=== PATIENT | female | born 1930 | race Caucasian/White ===

== ENCOUNTER 2017-08-04 15:10 | Inpatient (IN) | payer MEDICARE, OTHER ==
[~2017-08-04] VITALS: Ht 160 cm; Wt 86.6 kg
[~2017-08-04 15:10] MED LIST: ACIPHEX20 MG ORAL; DIOVAN HCT 1601 EACH ORAL; KLONOPIN0.5 MG ORAL; LASIX20 M1 ORAL; LOPRESSOR25 M1 ORAL; PACERONE200 MG ORAL; SERTRALINE HCL50 MG ORAL; SPIRONOLACTONE25 MG ORAL; SYNTHROID50 MCG ORAL; XARELTO10 MG ORAL
[2017-08-04] MEDS ORDERED: DIGOXIN0.125 MG/2 ORAL (15:13)
[2017-08-04] MEDS ORDERED: AMIODARONE HCL400 M1 ORAL (15:13)
--- NOTE | 2017-08-04 15:16 | Emergency Room Report ---
History of Present Illness General Chief Complaint: Chest Pain Source: Patient, EMS Present Illness HPI This is an 79-year-old female presented after increased chest pain. Patient reported having acute onset of symptoms. Patient was noted to have increased shortness of breath. Patient was given nitroglycerin x2 by EMS with improvement in her chest pain. Allergies: Coded Allergies: No Known Allergies (Unverified , 01/13/15) Patient History Past Medical History: see triage record Reviewed Nursing Documentation: PMH: Agreed, PSxH: Agreed Nursing Documentation-PMH Past Medical History: No History, Except For Hx Cardiac Problems: Yes Hx Hypertension: Yes Hx Cancer: Yes Hx Gastrointestinal Problems: No Hx Neurological Problems: No Review of Systems All Other Systems: negative except mentioned in HPI Physical Exam Vital Signs Date Time Temp Pulse Resp B/P (MAP) Pulse Ox O2 Delivery O2 Flow Rate FiO2 08/04/17 15:06 77 20 162/84 97 Nasal Cannula 4.0 Sp02 EP Interpretation: reviewed, normal General Appearance: normal inspection, well appearing, no apparent distress, alert, GCS 15, non-toxic Head: atraumatic ENT: normal ENT inspection, hearing grossly normal, normal voice Neck: normal inspection, full range of motion, supple, no bony tend Respiratory: normal inspection, lungs clear, normal breath sounds, no respiratory distress, no retraction, no wheezing Cardiovascular #1: regular rate, rhythm, no edema Gastrointestinal: normal inspection, normal bowel sounds, non tender, soft, no guarding, no hernia Genitourinary: no CVA tenderness Musculoskeletal: normal inspection, back normal, normal range of motion Neurologic: normal inspection, alert, responsive, speech normal Psychiatric: normal inspection, judgement/insight normal, mood/affect normal Skin: normal inspection, normal color, no rash Medical Decision Making Diagnostic Impression: Primary Impression: CAD (coronary artery disease) Additional Impression: Atrial flutter by electrocardiogram ER Course Patient presented for chest pain. Differential diagnosis included but was not limited to acute coronary syndrome, pulmonary embolism, pneumonia, aortic dissection, shingles, pneumothorax, aortic dissection, esophageal rupture, pericarditis. Because of complexity of patient's case laboratory testing and imaging studies were ordered. The patient was noted to have EKG with atrial flutter with variable block. atient was Khurram Mistry. Patient wasDiscussed with Dr. Reuben LandaverdeFor inpatient management due to covering physician. Labs Test 08/04/17 15:28 08/04/17 20:45 White Blood Count 7.1 K/UL (4.8-10.8) Red Blood Count 3.81 M/UL (4.20-5.40) Hemoglobin 11.4 G/DL (12.0-16.0) Hematocrit 36.5 % (37.0-47.0) Mean Corpuscular Volume 96 FL (80-99) Mean Corpuscular Hemoglobin 30.0 PG (27.0-31.0) Mean Corpuscular Hemoglobin Concent 31.3 G/DL (32.0-36.0) Red Cell Distribution Width 13.3 % (11.6-14.8) Platelet Count 191 K/UL (150-450) Mean Platelet Volume 6.3 FL (6.5-10.1) Neutrophils (%) (Auto) 67.8 % (45.0-75.0) Lymphocytes (%) (Auto) 24.2 % (20.0-45.0) Monocytes (%) (Auto) 6.7 % (1.0-10.0) Eosinophils (%) (Auto) 0.6 % (0.0-3.0) Basophils (%) (Auto) 0.7 % (0.0-2.0) D-Dimer 261 ng/mL (<500) Troponin I < 0.30 ng/mL (<=0.30) Pro-B-Type Natriuretic Peptide 2254 pg/mL (0-450) Digoxin Level < 0.3 ng/mL (0.5-2.0) Sodium Level 141 mEQ/L (135-145) Potassium Level 3.7 mEQ/L (3.4-4.9) Chloride Level 101 mEQ/L (98-107) Carbon Dioxide Level 26 mEQ/L (20-30) Anion Gap 14 (5-15) Blood Urea Nitrogen 22 mg/dL (7-23) Creatinine 1.2 mg/dL (0.5-0.9) Estimat Glomerular Filtration Rate mL/min (>60) Glucose Level 97 mg/dL (74-106) Calcium Level 8.9 mg/dL (8.6-10.2) Total Bilirubin 0.8 mg/dL (0.0-1.2) Aspartate Amino Transf (AST/SGOT) 34 U/L (5-40) Alanine Aminotransferase (ALT/SGPT) 25 U/L (3-33) Alkaline Phosphatase 91 U/L (35-104) Total Protein 6.6 g/dL (6.6-8.7) Albumin 3.9 g/dL (3.5-5.2) Globulin 2.7 g/dL Albumin/Globulin Ratio 1.4 (1.0-2.7) Last Vital Signs Date Time Temp Pulse Resp B/P (MAP) Pulse Ox O2 Delivery O2 Flow Rate FiO2 08/04/17 15:06 77 20 162/84 97 Nasal Cannula 4.0 Status: improved Disposition: ADMITTED INPATIENT Condition: Stable Steven Gilman Aug 04, 2017 15:15
[2017-08-04 15:48] LABS: BASOPHILS % (AUTO) 0.7 % (0.0-2.0); EOSINOPHILS % (AUTO) 0.6 % (0.0-3.0); LYMPHOCYTES % (AUTO) 24.2 % (20.0-45.0); MEAN CORPUSCULAR HGB CONC 31.3 G/DL (32.0-36.0); MEAN CORPUSCULAR VOLUME 96 FL (80-99); MEAN PLATELET VOLUME 6.3 FL (6.5-10.1); MONOCYTES % (AUTO) 6.7 % (1.0-10.0); NEUTROPHILS % (AUTO) 67.8 % (45.0-75.0); PLATELET COUNT 191 K/UL (150-450); RED BLOOD COUNT 3.81 M/UL (4.20-5.40); RED CELL DISTRIBUTION WIDTH 13.3 % (11.6-14.8); WHITE BLOOD COUNT 7.1 K/UL (4.8-10.8)
[2017-08-04 16:04] LABS: ALANINE AMINOTRANSFERASE 27 U/L (3-33); ALBUMIN/GLOBULIN RATIO 1.5 (1.0-2.7); ANION GAP 12 (5-15); ASPARTATE AMINO TRANSFERASE 36 U/L (5-40); CALCIUM 8.9 mg/dL (8.6-10.2); CARBON DIOXIDE 27 mEQ/L (20-30); CHLORIDE 100 mEQ/L (98-107); CREATININE 1.3 mg/dL (0.5-0.9); HEMOLYSIS 3; POTASSIUM 3.5 mEQ/L (3.4-4.9); SODIUM 139 mEQ/L (135-145); TOTAL PROTEIN 6.6 g/dL (6.6-8.7)
[2017-08-04 16:06] LABS: TROPONIN I < 0.30 ng/mL (<=0.30)
[2017-08-04 16:54] VITALS: BP 158/87
[2017-08-04 19:35] VITALS: BP 160/96
[2017-08-04 20:00] VITALS: BP 158/94
[2017-08-04 21:38] LABS: ALANINE AMINOTRANSFERASE 25 U/L (3-33); ALBUMIN/GLOBULIN RATIO 1.4 (1.0-2.7); ANION GAP 14 (5-15); ASPARTATE AMINO TRANSFERASE 34 U/L (5-40); CALCIUM 8.9 mg/dL (8.6-10.2); CARBON DIOXIDE 26 mEQ/L (20-30); CHLORIDE 101 mEQ/L (98-107); CREATININE 1.2 mg/dL (0.5-0.9); HEMOLYSIS 9; POTASSIUM 3.7 mEQ/L (3.4-4.9); SODIUM 141 mEQ/L (135-145); TOTAL PROTEIN 6.6 g/dL (6.6-8.7)
[2017-08-04 21:41] LABS: DIGOXIN < 0.3 ng/mL (0.5-2.0)
[2017-08-04] MEDS: Amiodarone 200mg tab ORAL SCH (21:47)
[2017-08-04 21:53] VITALS: BP 158/79
[2017-08-04] MEDS: clonazePAM 0.5mg tab ORAL SCH (23:30)
[2017-08-05] VITALS (7 sets, daily range): BP systolic 146–168; BP diastolic 66–103
[2017-08-05] MEDS: clonazePAM 0.5mg tab ORAL SCH ×4 (04:53→23:33)
[2017-08-05 07:59] LABS: TROPONIN I < 0.30 ng/mL (<=0.30)
[2017-08-05] MEDS ORDERED: Losartan 25mg tab ORAL SCH (09:00)
[2017-08-05] MEDS: Sertraline 50mg tab ORAL SCH (10:15)
[2017-08-05] MEDS: Digoxin Elixir 0.125mg ORAL SCH (10:15)
[2017-08-05] MEDS: Spironolactone 25mg tab ORAL SCH (10:15)
[2017-08-05] MEDS: Amiodarone 200mg tab ORAL SCH ×2 (10:15→20:55)
--- NOTE | 2017-08-05 12:15 | Diagnostic Imaging Report ---
Indication: Shortness of breath Comparison: 12/25/2015 Findings: Single view of the chest shows cardiomegaly unchanged. Pulmonary vasculature is normal. Lungs are clear. Bones are unremarkable. Impression: No acute chest disease. Cardiomegaly unchanged. There is no acute pneumonitis or failure. Aortic calcifications, unchanged.
[2017-08-05] MEDS: Xarelto 10mg tab ORAL SCH (16:57)
--- NOTE | 2017-08-05 20:26 | Pulmonology Progress Note ---
Assessment/Plan Assessment/Plan respiratory insufficiency CHF possible fluid overload advanced age possible hypoventilation hypoxemia PLAN care noted IV lasix respiratory care supportive care obtain venous US DVT prophylaxis oxygen therapy prognosis guarded Subjective Allergies: Coded Allergies: No Known Allergies (Unverified , 01/13/15) Subjective full note to followup asked to followup for dyspnea Objective Last 24 Hour Vital Signs Date Time Temp Pulse Resp B/P (MAP) Pulse Ox O2 Delivery O2 Flow Rate FiO2 08/05/17 20:00 98.0 75 18 146/103 95 Room Air 2.0 28 08/05/17 16:00 70 08/05/17 16:00 98.0 71 20 151/72 96 Room Air 08/05/17 14:30 151/72 08/05/17 12:52 98.7 76 20 168/66 97 Nasal Cannula 2.0 08/05/17 12:00 68 08/05/17 10:15 166/76 08/05/17 10:15 70 166/76 08/05/17 10:15 70 08/05/17 08:10 Nasal Cannula 2.0 28 08/05/17 08:10 95 Nasal Cannula 2.0 28 08/05/17 08:00 75 08/05/17 08:00 97.7 70 20 166/76 94 Nasal Cannula 2.0 08/05/17 04:39 97.9 71 22 147/75 98 Nasal Cannula 2.0 08/05/17 04:00 63 08/05/17 01:10 97.9 72 21 152/96 100 Nasal Cannula 2.0 08/05/17 00:00 71 08/04/17 21:53 96.3 72 20 158/79 95 Nasal Cannula 2.0 08/04/17 21:48 69 158/79 Intake and Output 08/05/17 08/06/17 19:00 07:00 Intake Total 630 ml Output Total 1500 ml Balance -870 ml Intake Oral 630 ml Output Urine Total 1500 ml Objective WDWN NAD reduced breath sounds bilaterally without rhonchi or wheeze [id number] without MRG NABS nontender no HSM no CC some edema nonfocal Laboratory Tests 08/04/17 20:45: Sodium Level 141, Potassium Level 3.7, Chloride Level 101, Carbon Dioxide Level 26, Anion Gap 14, Blood Urea Nitrogen 22, Creatinine 1.2H, Estimat Glomerular Filtration Rate , Glucose Level 97, Calcium Level 8.9, Total Bilirubin 0.8, Aspartate Amino Transf (AST/SGOT) 34, Alanine Aminotransferase (ALT/SGPT) 25, Alkaline Phosphatase 91, Total Protein 6.6, Albumin 3.9, Globulin 2.7, Albumin/ Globulin Ratio 1.4 08/05/17 05:50: Troponin I < 0.30 Current Medications Medications (Trade) Dose Ordered Sig/Tamia Route PRN Reason Start Time Stop Time Status Last Admin Dose Admin Acetaminophen (Tylenol) 650 mg Q4H PRN ORAL Mild Pain/Temp > 100.5 08/05/17 16:00 09/04/17 15:59 08/05/17 16:57 Amiodarone HCl (Cordarone) 200 mg EVERY 12 HOURS ORAL 08/04/17 21:00 09/03/17 20:59 08/05/17 10:15 Clonazepam (KlonoPIN) 0.5 mg Q6HR ORAL 08/05/17 00:00 08/12/17 00:00 08/05/17 17:01 Digoxin (Lanoxin) 0.125 mg DAILY ORAL 08/05/17 09:00 09/04/17 08:59 08/05/17 10:15 Furosemide (Lasix) 40 mg DAILY IV 08/05/17 09:00 09/04/17 08:59 08/05/17 10:15 Levothyroxine Sodium (Synthroid) 50 mcg ACBREAKFAST ORAL 08/05/17 06:30 09/04/17 06:29 08/05/17 04:53 Losartan Potassium (Cozaar) 25 mg DAILY ORAL 08/05/17 09:00 09/04/17 08:59 08/05/17 10:15 Metoprolol Tartrate (Lopressor) 100 mg EVERY 12 HOURS ORAL 08/04/17 21:00 09/03/17 20:59 08/05/17 10:15 Pantoprazole (Protonix) 40 mg ACBREAKFAST ORAL 08/05/17 06:30 09/04/17 06:29 08/05/17 04:54 Rivaroxaban (Xarelto) 15 mg QPM ORAL 08/05/17 16:30 09/04/17 16:29 08/05/17 16:57 Sennosides (Senokot) 17.2 mg DAILYPRN PRN ORAL Constipation 08/05/17 17:00 09/04/17 16:59 Sertraline HCl (Zoloft) 50 mg DAILY ORAL 08/05/17 09:00 09/04/17 08:59 08/05/17 10:15 Spironolactone (Aldactone) 25 mg DAILY ORAL 08/05/17 09:00 09/04/17 08:59 08/05/17 10:15 KARINE MARKS Aug 05, 2017 20:26
[2017-08-06] VITALS: BP 149/89
[2017-08-06 04:00] VITALS: BP 155/91
[2017-08-06] MEDS: clonazePAM 0.5mg tab ORAL SCH ×3 (05:05→18:15)
[2017-08-06] MEDS ORDERED: Nitroglycerin 2% oint pkt TOPIC SCH (06:00)
--- NOTE | 2017-08-06 08:05 | General Progress Note ---
Assessment/Plan Problem List: (1) Bronchitis ICD Codes: J40 - Bronchitis, not specified as acute or chronic SNOMED: 20578520 (2) CAD (coronary artery disease) ICD Codes: I25.10 - CAD (coronary artery disease) SNOMED: 18295653 (3) Atrial flutter by electrocardiogram ICD Codes: I48.92 - Unspecified atrial flutter SNOMED: 801304329 (4) Chest pain ICD Codes: R07.9 - Chest pain, unspecified SNOMED: 36458662 Status: stable Assessment/Plan po abx for bronchitis d/c nitro paste- probably causing ALDRICH cardiac rx adjusted o2 diuresis Subjective ROS Limited/Unobtainable: No Constitutional: Reports: malaise, weakness HEENT: Reports: no symptoms Cardiovascular: Reports: no symptoms Respiratory: Reports: no symptoms Gastrointestinal/Abdominal: Reports: no symptoms Genitourinary: Reports: no symptoms Neurologic/Psychiatric: Reports: no symptoms Endocrine: Reports: no symptoms Hematologic/Lymphatic: Reports: no symptoms Allergies: Coded Allergies: No Known Allergies (Unverified , 01/13/15) All Systems: reviewed and negative except above Subjective c/o headache. couldnt sleep. still does not feel well. feels congested. no fevers. Objective Last 24 Hour Vital Signs Date Time Temp Pulse Resp B/P (MAP) Pulse Ox O2 Delivery O2 Flow Rate FiO2 08/06/17 06:26 160/91 08/06/17 04:00 98.0 61 19 155/91 96 Room Air 2.0 08/06/17 03:57 69 08/06/17 00:00 97.9 66 19 149/89 97 Room Air 2.0 08/05/17 23:50 60 08/05/17 20:56 75 146/103 08/05/17 20:00 98.0 75 18 146/103 95 Room Air 2.0 28 08/05/17 19:05 84 08/05/17 16:00 70 08/05/17 16:00 98.0 71 20 151/72 96 Room Air 08/05/17 14:30 151/72 08/05/17 12:52 98.7 76 20 168/66 97 Nasal Cannula 2.0 08/05/17 12:00 68 08/05/17 10:15 166/76 08/05/17 10:15 70 166/76 08/05/17 10:15 70 08/05/17 08:10 Nasal Cannula 2.0 28 08/05/17 08:10 95 Nasal Cannula 2.0 28 Laboratory Tests 08/06/17 07:00: White Blood Count [Pending], Red Blood Count [Pending], Hemoglobin [Pending], Hematocrit [Pending], Mean Corpuscular Volume [Pending], Mean Corpuscular Hemoglobin [Pending], Mean Corpuscular Hemoglobin Concent [Pending], Red Cell Distribution Width [Pending], Platelet Count [Pending], Mean Platelet Volume [ Pending], Neutrophils (%) (Auto) [Pending], Lymphocytes (%) (Auto) [Pending], Monocytes (%) (Auto) [Pending], Eosinophils (%) (Auto) [Pending], Basophils (%) (Auto) [Pending], Sodium Level [Pending], Potassium Level [Pending], Chloride Level [Pending], Carbon Dioxide Level [Pending], Blood Urea Nitrogen [Pending], Creatinine [Pending], Estimat Glomerular Filtration Rate [Pending], Glucose Level [Pending], Calcium Level [Pending], Magnesium Level [Pending], Total Bilirubin [Pending], Aspartate Amino Transf (AST/SGOT) [Pending], Alanine Aminotransferase (ALT/SGPT) [Pending], Alkaline Phosphatase [Pending], Pro-B- Type Natriuretic Peptide [Pending], Total Protein [Pending], Albumin [Pending], Globulin [Pending], Triglycerides Level [Pending], Cholesterol Level [Pending], LDL Cholesterol [Pending], HDL Cholesterol [Pending], Cholesterol/HDL Ratio [ Pending], Digoxin Level [Pending] Height (Feet): 5 Height (Inches): 3.00 Weight (Pounds): 185 General Appearance: WD/WN, alert Neck: non-tender, normal alignment, supple, normal inspection Cardiovascular: normal rate, regular rhythm Respiratory/Chest: chest wall non-tender, lungs clear, normal breath sounds, no respiratory distress Abdomen: normal bowel sounds, non tender, soft, no organomegaly Edema: no edema noted Arm (L), no edema noted Arm (R), no edema noted Leg (L), no edema noted Leg (R), no edema noted Pedal (L), no edema noted Pedal (R), no edema noted Generalized RACHEL KITCHEN Aug 06, 2017 08:05
[2017-08-06 08:13] LABS: BASOPHILS % (AUTO) 0.6 % (0.0-2.0); LYMPHOCYTES % (AUTO) 25.7 % (20.0-45.0); MEAN CORPUSCULAR HEMOGLOBIN 29.5 PG (27.0-31.0); MEAN CORPUSCULAR HGB CONC 31.1 G/DL (32.0-36.0); MEAN CORPUSCULAR VOLUME 95 FL (80-99); MEAN PLATELET VOLUME 6.8 FL (6.5-10.1); MONOCYTES % (AUTO) 8.2 % (1.0-10.0); NEUTROPHILS % (AUTO) 64.6 % (45.0-75.0); PLATELET COUNT 212 K/UL (150-450); RED BLOOD COUNT 4.23 M/UL (4.20-5.40); RED CELL DISTRIBUTION WIDTH 13.2 % (11.6-14.8)
[2017-08-06 08:49] LABS: ALANINE AMINOTRANSFERASE 22 U/L (3-33); ALBUMIN/GLOBULIN RATIO 1.3 (1.0-2.7); ANION GAP 10 (5-15); ASPARTATE AMINO TRANSFERASE 27 U/L (5-40); CALCIUM 9.5 mg/dL (8.6-10.2); CARBON DIOXIDE 31 mEQ/L (20-30); CHLORIDE 102 mEQ/L (98-107); CHOLESTEROL 161 mg/dL (< 200); CREATININE 1.3 mg/dL (0.5-0.9); HEMOLYSIS 7; LDL CHOLESTEROL CALC 111 mg/dL (60-99); MAGNESIUM 2.1 mg/dL (1.7-2.5); POTASSIUM 3.9 mEQ/L (3.4-4.9); SODIUM 143 mEQ/L (135-145); TOTAL PROTEIN 6.9 g/dL (6.6-8.7)
[2017-08-06 08:53] VITALS: BP 133/79
[2017-08-06] MEDS: Sertraline 50mg tab ORAL SCH (09:36)
[2017-08-06] MEDS: Spironolactone 25mg tab ORAL SCH (09:36)
[2017-08-06] MEDS: Amiodarone 200mg tab ORAL SCH ×2 (09:38→21:06)
[2017-08-06] MEDS: Digoxin Elixir 0.125mg ORAL SCH (09:38)
[2017-08-06] MEDS: Losartan 50mg tab ORAL SCH (09:39)
[2017-08-06] MEDS ORDERED: Levofloxacin 500mg tab ORAL ONE (10:00)
--- NOTE | 2017-08-06 10:35 | Pulmonology Progress Note ---
Assessment/Plan Assessment/Plan respiratory insufficiency CHF possible fluid overload advanced age possible hypoventilation hypoxemia PLAN care noted therapy without change nitro dcd respiratory care supportive care await venous US stablilize and dc when improved oxygen therapy prognosis guarded impression, plan, and exam edited and reviewed in detail care discussed with RN Subjective Allergies: Coded Allergies: No Known Allergies (Unverified , 01/13/15) Subjective mild congestion headache on oxygen Objective Last 24 Hour Vital Signs Date Time Temp Pulse Resp B/P (MAP) Pulse Ox O2 Delivery O2 Flow Rate FiO2 08/06/17 09:50 67 133/79 08/06/17 09:39 133/79 08/06/17 09:38 67 133/79 08/06/17 09:38 67 08/06/17 08:53 98.2 67 20 133/79 91 Room Air 08/06/17 08:20 74 08/06/17 06:26 160/91 08/06/17 04:00 98.0 61 19 155/91 96 Room Air 2.0 08/06/17 03:57 69 08/06/17 00:00 97.9 66 19 149/89 97 Room Air 2.0 08/05/17 23:50 60 08/05/17 20:56 75 146/103 08/05/17 20:00 98.0 75 18 146/103 95 Room Air 2.0 28 08/05/17 19:05 84 08/05/17 16:00 70 08/05/17 16:00 98.0 71 20 151/72 96 Room Air 08/05/17 14:30 151/72 08/05/17 12:52 98.7 76 20 168/66 97 Nasal Cannula 2.0 08/05/17 12:00 68 Intake and Output 08/06/17 08/07/17 19:00 07:00 Intake Total 240 ml Output Total 900 ml Balance -660 ml Intake Oral 240 ml Output Urine Total 900 ml Objective WDWN NAD reduced breath sounds bilaterally with some rhonchi but no wheeze [id number] without MRG NABS nontender no HSM no CC some edema nonfocal Laboratory Tests 08/06/17 07:00: White Blood Count 6.0, Red Blood Count 4.23, Hemoglobin 12.5, Hematocrit 40.2, Mean Corpuscular Volume 95, Mean Corpuscular Hemoglobin 29.5, Mean Corpuscular Hemoglobin Concent 31.1L, Red Cell Distribution Width 13.2, Platelet Count 212, Mean Platelet Volume 6.8, Neutrophils (%) (Auto) 64.6, Lymphocytes (%) (Auto) 25.7, Monocytes (%) (Auto) 8.2, Eosinophils (%) (Auto) 1.0, Basophils (%) (Auto ) 0.6, Sodium Level 143, Potassium Level 3.9, Chloride Level 102, Carbon Dioxide Level 31H, Anion Gap 10, Blood Urea Nitrogen 24H, Creatinine 1.3H, Estimat Glomerular Filtration Rate , Glucose Level 91, Calcium Level 9.5, Magnesium Level 2.1, Total Bilirubin 1.0, Aspartate Amino Transf (AST/SGOT) 27, Alanine Aminotransferase (ALT/SGPT) 22, Alkaline Phosphatase 89, Pro-B-Type Natriuretic Peptide 1842H, Total Protein 6.9, Albumin 3.9, Globulin 3.0, Albumin /Globulin Ratio 1.3, Triglycerides Level 113, Cholesterol Level 161, LDL Cholesterol 111H, HDL Cholesterol 27, Cholesterol/HDL Ratio 6.0H, Digoxin Level [Pending] Current Medications Medications (Trade) Dose Ordered Sig/Tamia Route PRN Reason Start Time Stop Time Status Last Admin Dose Admin Acetaminophen (Tylenol) 650 mg Q4H PRN ORAL Mild Pain/Temp > 100.5 08/05/17 16:00 09/04/17 15:59 08/06/17 09:37 Amiodarone HCl (Cordarone) 200 mg EVERY 12 HOURS ORAL 08/04/17 21:00 09/03/17 20:59 08/06/17 09:38 Amlodipine Besylate (Norvasc) 5 mg DAILY ORAL 08/06/17 09:00 09/05/17 08:59 08/06/17 09:50 Clonazepam (KlonoPIN) 0.5 mg Q6HR ORAL 08/05/17 00:00 08/12/17 00:00 08/05/17 23:33 Digoxin (Lanoxin) 0.125 mg DAILY ORAL 08/05/17 09:00 09/04/17 08:59 08/06/17 09:38 Furosemide (Lasix) 40 mg DAILY IV 08/05/17 09:00 09/04/17 08:59 08/06/17 09:36 Hydralazine HCl (Apresoline) 10 mg Q4H PRN IV For High Blood Pressure 08/06/17 08:00 09/05/17 07:59 Levofloxacin (Levaquin) 250 mg DAILY ORAL 08/07/17 09:00 08/14/17 08:59 Levothyroxine Sodium (Synthroid) 50 mcg ACBREAKFAST ORAL 08/05/17 06:30 09/04/17 06:29 08/06/17 06:27 Losartan Potassium (Cozaar) 100 mg DAILY ORAL 08/06/17 09:00 09/05/17 08:59 08/06/17 09:39 Metoprolol Tartrate (Lopressor) 100 mg EVERY 12 HOURS ORAL 08/04/17 21:00 09/03/17 20:59 08/06/17 09:38 Pantoprazole (Protonix) 40 mg ACBREAKFAST ORAL 08/05/17 06:30 09/04/17 06:29 08/06/17 06:27 Rivaroxaban (Xarelto) 15 mg QPM ORAL 08/05/17 16:30 09/04/17 16:29 08/05/17 16:57 Sennosides (Senokot) 17.2 mg DAILYPRN PRN ORAL Constipation 08/05/17 17:00 09/04/17 16:59 08/06/17 06:27 Sertraline HCl (Zoloft) 50 mg DAILY ORAL 08/05/17 09:00 09/04/17 08:59 08/06/17 09:36 Spironolactone (Aldactone) 25 mg DAILY ORAL 08/05/17 09:00 09/04/17 08:59 08/06/17 09:36 KARINE MARKS Aug 06, 2017 10:35
[2017-08-06 11:56] VITALS: BP 137/85
--- NOTE | 2017-08-06 12:00 | History and Physical Report ---
DATE OF ADMISSION: 08/05/2017 CHIEF COMPLAINT: CHF exacerbation. History Of Present Illness: The patient is an 87-year-old female. She has a history of ischemic cardiomyopathy, paroxysmal atrial fibrillation, congestive heart failure, and hypertension. She presented from home with complaints of shortness of breath. The patient is a poor historian. According to the patient, she has had worsening shortness of breath and orthopnea for the last several days. She denies any medication noncompliance. Denies any dietary noncompliance. On evaluation in the emergency room, the patient had evidence of congestive heart failure. Her initial set of enzymes was negative. She has been started on IV diuretic therapy. She is now admitted for further evaluation and care. She denies any fever or chills. She has had no cough. PAST MEDICAL HISTORY: As above. PAST SURGICAL HISTORY: None. CURRENT MEDICATIONS: Reconciled and reviewed. ALLERGIES: None. SOCIAL HISTORY: Negative for tobacco, ethanol, or drugs. FAMILY HISTORY: None. Review Of Systems: General: No fevers or chills. HEENT: No headaches or visual changes. Cardiopulmonary: Positive shortness of breath. Positive orthopnea. Gastrointestinal: No nausea or vomiting. Genitourinary: No urgency or frequency. Musculoskeletal: No joint pain or swelling. Neurologic: No evidence of seizures. PHYSICAL EXAMINATION: Vital Signs: Temperature 98 degrees, pulse 71, respirations 22, and blood pressure 147/75. General: The patient is a well-developed female, in no apparent distress. She is awake and alert. HEENT: Her pupils are equal, round, and reactive to light. Sclerae anicteric. Oropharynx clear. NECK: Supple. HEART: Regular rate and rhythm. LUNGS: Significant for sparse bibasilar rales. ABDOMEN: Soft, nontender, and nondistended. EXTREMITIES: Without clubbing, cyanosis, or edema. Laboratory And Diagnostic Data: White count was 7, hemoglobin 11, hematocrit 36, and platelets 191,000. D-dimer was 261. Natriuretic peptide assay was 2254. Sodium 139, potassium 3.5, BUN 24, and creatinine is 1.3. Chest x-ray showed mild congestive heart failure changes. Assessment: This is a pleasant female with complaints of congestive heart failure exacerbation. 1. Mild congestive heart failure exacerbation. 2. History of ischemic cardiomyopathy. 3. Hypertension. 4. Atrial fibrillation. Plan: Continue IV diuretic therapy. Continue supplemental oxygen. Monitor lytes and volume status. Monitor renal function. Continue current cardiac regimen. Monitor on telemetry. Cardiology and Pulmonary consultations will be obtained. Reuben Landaverde M.D. DR: Rudolph JOB#: [id number] CC:
[2017-08-06 16:08] VITALS: BP 143/67
[2017-08-06] MEDS: Xarelto 10mg tab ORAL SCH (16:31)
--- NOTE | 2017-08-06 16:45 | Progress Note ---
DATE: 08/05/2017 CARDIOLOGY PROGRESS NOTE Subjective: The patient has slight improvement in her shortness of breath. Still feels uncomfortable. OBJECTIVE: Vital Signs: Blood pressure parameters remain labile ranging from 147/75 to 146/103 and 168/76, heart rate 70, respiratory rate 20, and afebrile. Echocardiogram revealed normal ejection fraction with mild to moderate valvular regurgitation of all valves. Monitored rhythm atrial fibrillation. LUNGS: Diminished breath sounds with few rales. NECK: Elevated jugular venous pressure. Heart: Irregularly irregular rhythm. Normal S1 and S2. A 1/6 systolic murmur at apex. ABDOMEN: Soft and nontender. EXTREMITIES: With dependent edema. LABORATORY STUDIES: Troponin negative x2. IMPRESSIONS: 1. Acute respiratory insufficiency. 2. Acute on chronic diastolic congestive heart failure. 3. Degenerative valve disease with regurgitation. 4. Hypoxemia. 5. Hypertensive heart disease with labile blood pressure. 6. Ischemic cardiomyopathy with no signs of acute coronary insufficiency at this time. 7. Paroxysmal atrial fibrillation with controlled ventricular response. PLAN: 1. Cardiac monitoring. 2. Diuresis with intravenous loop diuretic. 3. Maintain rivaroxaban for cardioembolic prophylaxis. 4. Up titrate antihypertensives. 5. Continue digitalis for rate control. 6. Followup laboratory studies and trend natriuretic peptide assay. Jose Elias Terrazas M.D. DR: RAEGAN JOB#: [id number] CC: JOI
--- NOTE | 2017-08-06 17:00 | Consultation ---
DATE OF CONSULTATION: 08/04/2017 CARDIOLOGY CONSULTATION REQUESTING PHYSICIAN: Reuben Landaverde M.D. REASON FOR CONSULTATION: Chest pain and shortness of breath. History Of Present Illness: This 87-year-old [place] female with a known history of ischemic heart disease presented to the emergency room with chest pain. The episode was acute and associated with shortness of breath. Chest pain was resolved while in the field with nitroglycerin x2 given by EMS. The patient still had shortness of breath in the emergency room. She has been compliant with medications. The patient was last hospitalized here in 2014 at which time, a myocardial perfusion scan was performed and revealed the evidence of mild anterior ischemia. The patient has been managed medically. Past Medical History: Hypertensive heart disease, chronic atrial fibrillation, ischemic cardiomyopathy, osteoarthritis, and degenerative disk disease. ALLERGIES: None. MEDICATIONS: Prior to admission, reviewed and reconciled. FAMILY HISTORY: Noncontributory. SOCIAL HISTORY: Negative for smoking, alcohol, or substance abuse. Review Of Systems: A 10-point review of systems performed. All systems negative other than noted above. In addition, pertinent data from prior hospital stays was completed and outlined above via record review. PHYSICAL EXAMINATION: Vital Signs: Blood pressure 162/84, pulse 77, respiratory rate 20, and afebrile. HEENT: Normocephalic and atraumatic. Conjunctivae are pink. Oropharynx clear. Mucous membranes moist. Neck: No accessory muscle use. Thyroid not enlarged. Trachea midline. LUNGS: With few rales. Cardiac: Irregularly irregular rhythm. Normal S1 and S2. A 1/6 systolic murmur at the apex and 1/4 diastolic decrescendo at the base. ABDOMEN: Soft and nontender. Extremities: No clubbing or cyanosis. There is mild dependent edema in both lower extremities. Laboratory And Diagnostic Data: EKG reveals atrial flutter with variable block, no acute ST-T wave changes. Chest x-ray reveals pulmonary venous congestion. Troponin negative. Pro-natriuretic peptide 2254. Potassium 3.7. TSH normal. IMPRESSION: 1. Acute coronary syndrome. 2. Acute on chronic diastolic congestive heart failure. 3. Paroxysmal atrial fibrillation, rate controlled. 4. Coagulopathy due to rivaroxaban. 5. Hypertensive heart disease with elevated blood pressure range. PLAN: 1. Cardiac monitoring. 2. Serial troponins. 3. Nasal oxygen. 4. Intravenous diuresis. 5. Titrate anti-failure and antihypertensive regimen. 6. Continue rivaroxaban for cardioembolic prophylaxis. 7. Followup lipid panel. 8. Reassess antiarrhythmic regimen. 9. We will follow. 10. Topical nitrates. Thank you for this consultation. Jose Elias Terrazas M.D. DR: RAEGAN JOB#: [id number] CC: JOI
--- NOTE | 2017-08-06 19:04 | Cardiology Report ---
APPROVED REPORT EXAM: Two-dimensional and M-mode echocardiogram with Doppler and color Doppler. INDICATION Chest Pain M-Mode DIMENSIONS IVSd1.3 (0.7-1.1cm)Left Atrium (MM)4.1 (1.6-4.0cm) LVDd4.9 (3.5-5.6cm)Aortic Root3.1 (2.0-3.7cm) PWd1.2 (0.7-1.1cm)Aortic Cusp Exc.1.8 (1.5-2.0cm) LVDs3.4 (2.5-4.0cm) PWs1.9 cm Technically difficult study due to acoustical windows. Normal left ventricular chamber size, systolic function and wall motion to extent visualized. Left ventricular ejection fraction estimated to be 55-60 %. Study quality precludes accurate assessment of regional wall motion. Mild left ventricular hypertrophy. Anterior Echo-free space, may be due to pericardial fat or effusion. Moderate left atrial enlargement. Mild right atrial enlargement. Right ventricular chamber size is within normal limits. Focal aortic valve sclerosis with adequate cusp excursion. Thickened mitral valve leaflets with normal excursion. Mitral annulus and aortic root calcification. Pulmonic valve not well visualized. Normal tricuspid valve structure. IVC at normal size with slight physiologic collapse. A color flow and spectral Doppler study was performed and revealed: Mild aortic regurgitation. Moderate mitral regurgitation. Can not determine left ventricular diastolic function by mitral diastolic velocities due to atrial fibrillation. Moderate tricuspid regurgitation. Tricuspid systolic velocities suggests peak right ventricular systolic pressure of 62 mmHg, consistent with severe pulmonary hypertension. Mild pulmonic regurgitation present.
[2017-08-06 20:29] VITALS: BP 151/74
--- NOTE | 2017-08-06 23:15 | Progress Note ---
DATE: 08/06/2017 CARDIOLOGY PROGRESS NOTE Subjective: The patient has less shortness of breath today. She has mild congestion remaining, however, still is on oxygen. No chest pain, but has a headache. OBJECTIVE: Vital Signs: Blood pressure 133/79 to 160/91, heart rate 60 to 74, respiratory rate 18 to 20, and temperature 98.2 degrees. LUNGS: Few rales. Cardiac: Irregularly irregular rhythm. Normal S1 and S2. A 2/6 systolic murmur at apex. ABDOMEN: Soft and nontender. EXTREMITIES: With trace edema. Laboratory and diagnostic Data: Sodium 143, potassium 3.9, bicarbonate 31, BUN 24, and creatinine 1.3. Pro-natriuretic peptide has decreased to 1842. LDL cholesterol was 111, total cholesterol 161, and HDL 27. White count 6 and hemoglobin 12.5. Echocardiogram revealed normal ejection fraction with signs of moderate mitral and tricuspid regurgitation and [id number] pulmonary hypertension. IMPRESSION: 1. Acute on chronic diastolic congestive heart failure. 2. Degenerative valve disease with regurgitation. 3. Hypoxia. 4. Hypertensive heart disease with labile blood pressure, now improved. 5. Paroxysmal atrial fibrillation. PLAN: 1. Continue rivaroxaban for cardioembolic prophylaxis. 2. Maintain diuresis. 3. Once euvolemic, transition to oral regimen. 4. Maximize anti-failure and antihypertensive regimen to help minimize clinical sequelae of valvular regurgitation. Jose Elias Terrazas M.D. DR: OLIVA JOB#: [id number] CC:
[2017-08-07] VITALS: BP 149/59
[2017-08-07] MEDS: clonazePAM 0.5mg tab ORAL SCH ×5 (00:06→23:39)
[2017-08-07 04:00] VITALS: BP 155/89
[2017-08-07 08:00] VITALS: BP 155/84
--- NOTE | 2017-08-07 08:17 | Pulmonology Progress Note ---
Assessment/Plan Assessment/Plan respiratory insufficiency CHF possible fluid overload advanced age possible hypoventilation hypoxemia pulmonary hypertension by echo PLAN care noted therapy reviewed respiratory care supportive care await venous US stablilize and dc when improved oxygen therapy prognosis guarded conservative management recommended at present impression, plan, and exam edited and reviewed in detail care discussed with RN Subjective Allergies: Coded Allergies: No Known Allergies (Unverified , 01/13/15) Subjective reduced congestion headache minimal on oxygen Objective Last 24 Hour Vital Signs Date Time Temp Pulse Resp B/P (MAP) Pulse Ox O2 Delivery O2 Flow Rate FiO2 08/07/17 08:00 97.0 61 18 155/84 95 Nasal Cannula 2.0 08/07/17 04:00 69 08/07/17 04:00 97.6 72 22 155/89 98 Nasal Cannula 2.0 08/07/17 00:00 98.0 75 18 149/59 98 Nasal Cannula 2.0 08/07/17 00:00 70 08/06/17 21:22 Nasal Cannula 2.0 28 08/06/17 21:22 98 Nasal Cannula 2.0 28 08/06/17 21:06 77 151/66 08/06/17 20:29 97.0 66 20 151/74 98 Nasal Cannula 2.0 08/06/17 20:00 70 08/06/17 16:08 98.2 86 20 143/67 97 Room Air 08/06/17 16:00 61 08/06/17 12:00 64 08/06/17 11:56 97.7 73 20 137/85 96 Room Air 08/06/17 09:50 67 133/79 08/06/17 09:39 133/79 08/06/17 09:38 67 133/79 08/06/17 09:38 67 08/06/17 08:53 98.2 67 20 133/79 91 Room Air 08/06/17 08:20 74 Objective WDWN NAD reduced breath sounds bilaterally with minimal rhonchi but no wheeze [id number] without MRG NABS nontender no HSM no CC reduced edema nonfocal Current Medications Medications (Trade) Dose Ordered Sig/Tamia Route PRN Reason Start Time Stop Time Status Last Admin Dose Admin Acetaminophen (Tylenol) 650 mg Q4H PRN ORAL Mild Pain/Temp > 100.5 08/05/17 16:00 09/04/17 15:59 08/07/17 02:47 Amiodarone HCl (Cordarone) 200 mg EVERY 12 HOURS ORAL 08/04/17 21:00 09/03/17 20:59 08/06/17 21:06 Amlodipine Besylate (Norvasc) 10 mg DAILY ORAL 08/07/17 09:00 09/06/17 08:59 Clonazepam (KlonoPIN) 0.5 mg Q6HR ORAL 08/05/17 00:00 08/12/17 00:00 08/07/17 06:03 Digoxin (Lanoxin) 0.125 mg DAILY ORAL 08/05/17 09:00 09/04/17 08:59 08/06/17 09:38 Furosemide (Lasix) 40 mg DAILY IV 08/05/17 09:00 09/04/17 08:59 08/06/17 09:36 Hydralazine HCl (Apresoline) 10 mg Q4H PRN IV For High Blood Pressure 08/06/17 08:00 09/05/17 07:59 Levofloxacin (Levaquin) 250 mg DAILY ORAL 08/07/17 09:00 08/14/17 08:59 Levothyroxine Sodium (Synthroid) 50 mcg ACBREAKFAST ORAL 08/05/17 06:30 09/04/17 06:29 08/07/17 06:04 Losartan Potassium (Cozaar) 100 mg DAILY ORAL 08/06/17 09:00 09/05/17 08:59 08/06/17 09:39 Metoprolol Tartrate (Lopressor) 100 mg EVERY 12 HOURS ORAL 08/04/17 21:00 09/03/17 20:59 08/06/17 21:06 Pantoprazole (Protonix) 40 mg ACBREAKFAST ORAL 08/05/17 06:30 09/04/17 06:29 08/07/17 06:03 Rivaroxaban (Xarelto) 15 mg QPM ORAL 08/05/17 16:30 09/04/17 16:29 08/06/17 16:31 Sennosides (Senokot) 17.2 mg DAILYPRN PRN ORAL Constipation 08/05/17 17:00 09/04/17 16:59 08/06/17 06:27 Sertraline HCl (Zoloft) 50 mg DAILY ORAL 08/05/17 09:00 09/04/17 08:59 08/06/17 09:36 Spironolactone (Aldactone) 25 mg DAILY ORAL 08/05/17 09:00 09/04/17 08:59 08/06/17 09:36 KARINE MARKS Aug 07, 2017 08:17
--- NOTE | 2017-08-07 08:32 | Consultation ---
DATE OF CONSULTATION: 08/05/2017 PULMONARY CONSULTATION CONSULTING PHYSICIAN: Angel Mars M.D. REFERRING PHYSICIAN: Reuben Landaverde M.D. Reason For Consultation: Respiratory insufficiency and pulmonary congestion. History Of Present Illness: This is an 87-year-old female admitted through the emergency room. The patient noted to have chest pain, shortness of breath, and mild congestion. The patient was given nitroglycerin in the emergency room with improvement of chest pain. The patient now admitted for possible acute coronary syndrome, possible pneumonia, and possible pulmonary edema. The patient's care was discussed and reviewed with nursing staff. The patient is well known to me from prior admissions. The patient's care and findings all were reviewed. The patient is without any fevers or chills. Denied any palpitations. Past Medical History: Notable for cardiac disease, hypertension, prior history of atrial flutter, prior history of CAD, dysrhythmias, hypothyroidism, and depression. MEDICATIONS: Reviewed. ALLERGIES: Reviewed. Social History: The patient is retired. She is of [place] descent. She does not smoke or drink. Review Of Systems: Otherwise negative with the exception of the above. PHYSICAL EXAMINATION: GENERAL: A well-developed female of advanced age. Vital Signs: 148/89, 66, 19, sats 97% on two liters, and temperature is 97.9 degrees. HEENT: Overall negative. Extraocular movements are grossly intact. Mild jugular distention. LUNGS: Crackles at both bases. Moderate air entry. Cardiac: Normal S1 and S2. Noted murmur at the parasternal border. The patient's rhythm is currently regular. ABDOMEN: Soft, nontender, and nondistended. EXTREMITIES: No cyanosis or clubbing. Minimal edema. NEUROLOGICAL: Grossly nonfocal. Laboratory Data: On admission, white cell count 7.1 and hemoglobin 11.4. Electrolytes fairly normal. BUN 22 and creatinine is 1.2. Digoxin less than 0.3. IMPRESSION: 1. Atrial flutter, per history. 2. Atrial dysrhythmias. 3. Congestive heart failure. 4. Possible pneumonia. 5. Pulmonary congestion. 6. Respiratory insufficiency. 7. Possible bronchitis. 8. Coronary artery disease. RECOMMENDATIONS: 1. Empiric antibiotics. 2. Respiratory therapy. 3. Cardiac management. 4. Diuresis. 5. Monitor clinically and recommend. 6. Optimize care. 7. We will follow up 02:43 and assist with discharge planning. Anegl Mars M.D. DR: KARON JOB#: [id number] CC:
[2017-08-07] MEDS: Spironolactone 25mg tab ORAL SCH (08:58)
[2017-08-07] MEDS: Digoxin Elixir 0.125mg ORAL SCH (08:59)
[2017-08-07] MEDS: Sertraline 50mg tab ORAL SCH (08:59)
[2017-08-07] MEDS: Amiodarone 200mg tab ORAL SCH ×2 (09:00→20:49)
[2017-08-07] MEDS: Losartan 50mg tab ORAL SCH (09:01)
--- NOTE | 2017-08-07 09:10 | General Progress Note ---
Assessment/Plan Problem List: (1) Bronchitis ICD Codes: J40 - Bronchitis, not specified as acute or chronic SNOMED: 40111807 (2) CAD (coronary artery disease) ICD Codes: I25.10 - CAD (coronary artery disease) SNOMED: 05925004 (3) Atrial flutter by electrocardiogram ICD Codes: I48.92 - Unspecified atrial flutter SNOMED: 557666200 (4) Chest pain ICD Codes: R07.9 - Chest pain, unspecified SNOMED: 65509845 Status: stable, progressing Assessment/Plan po abx for bronchitis d/c nitro paste- probably causing ALDRICH cardiac rx adjusted o2 diuresis follow up cxr Subjective ROS Limited/Unobtainable: No Constitutional: Reports: malaise, weakness HEENT: Reports: no symptoms Cardiovascular: Reports: no symptoms Respiratory: Reports: orthopnea, shortness of breath, SOB with excertion Gastrointestinal/Abdominal: Reports: no symptoms Genitourinary: Reports: no symptoms Neurologic/Psychiatric: Reports: no symptoms Endocrine: Reports: no symptoms Hematologic/Lymphatic: Reports: no symptoms Allergies: Coded Allergies: No Known Allergies (Unverified , 01/13/15) All Systems: reviewed and negative except above Subjective slept "a little better". still does not feel well. feels congested. no fevers. still with sob. Objective Last 24 Hour Vital Signs Date Time Temp Pulse Resp B/P (MAP) Pulse Ox O2 Delivery O2 Flow Rate FiO2 08/07/17 09:01 155/84 08/07/17 09:00 61 155/84 08/07/17 09:00 61 155/84 08/07/17 08:59 61 08/07/17 08:00 97.0 61 18 155/84 95 Nasal Cannula 2.0 08/07/17 04:00 69 08/07/17 04:00 97.6 72 22 155/89 98 Nasal Cannula 2.0 08/07/17 00:00 98.0 75 18 149/59 98 Nasal Cannula 2.0 08/07/17 00:00 70 08/06/17 21:22 Nasal Cannula 2.0 28 08/06/17 21:22 98 Nasal Cannula 2.0 28 08/06/17 21:06 77 151/66 08/06/17 20:29 97.0 66 20 151/74 98 Nasal Cannula 2.0 08/06/17 20:00 70 08/06/17 16:08 98.2 86 20 143/67 97 Room Air 08/06/17 16:00 61 08/06/17 12:00 64 08/06/17 11:56 97.7 73 20 137/85 96 Room Air 08/06/17 09:50 67 133/79 08/06/17 09:39 133/79 08/06/17 09:38 67 133/79 08/06/17 09:38 67 Intake and Output 08/07/17 08/08/17 19:00 07:00 Intake Total 240 ml Balance 240 ml Intake Oral 240 ml # Voids 1 Height (Feet): 5 Height (Inches): 3.00 Weight (Pounds): 190 General Appearance: WD/WN, alert Neck: supple Cardiovascular: regular rhythm Respiratory/Chest: crackles/rales Abdomen: normal bowel sounds, non tender, soft, no organomegaly Edema: no edema noted Arm (L), no edema noted Arm (R), no edema noted Leg (L), no edema noted Leg (R), no edema noted Pedal (L), no edema noted Pedal (R), no edema noted Generalized RACHEL KITCHEN Aug 07, 2017 09:10
--- NOTE | 2017-08-07 11:29 | Diagnostic Imaging Report ---
Indication: Cough Comparison: 08/04/17 A single view chest radiograph was obtained. Findings: The heart is enlarged. Lungs are clear. Bones are osteopenic. Impression: No acute disease
[2017-08-07 12:00] VITALS: BP 152/96
--- NOTE | 2017-08-07 12:55 | Diagnostic Imaging Report ---
APPROVED REPORT CPT Code: 00720 Present Symptoms Comments: R/O DVT BILATERAL: Imaging reveals a patent deep venous system bilaterally. There is no evidence of thrombus within the femoral, popliteal or tibial segments. The greater saphenous veins are also within normal limits. Doppler indicates normal spontaneous flow within these segments.
[2017-08-07 15:55] VITALS: BP 134/63
[2017-08-07] MEDS: Xarelto 10mg tab ORAL SCH (16:18)
--- NOTE | 2017-08-07 16:43 | Physician Query ---
PLEASE COMPLETE THE FORM BEFORE SIGNING Dear Dr. Reuben Landaverde Date; August Food Counter Worker/CDS Anny Adrienshelby [facility] [employer] Counter Worker/CDS Phone #: [phone] Exercise your independent professional judgment when responding to query. Questions asked do not imply particular answer is desired or expected. We greatly appreciate your clarification on this issue. Clinical Documentation States: "She presented from home with complaints of shortness of breath. According to the patient, she has had worsening shortness of breath and orthopnea for the last several days. On evaluation in the emergency room, the patient had evidence of congestive heart failure" documented in the history and physical of Dr.Kirk Landaverde. Clinical Findings Show: RR: 20,21,20,22 per minute LUNGS: Significant for sparse bibasilar rales On Supplemental Oxygen Please clarify if the patient had any of the following conditions based on the above clinical findings: [x]Respiratory Failure [x] Acute [] Chronic (on home O2) []Acute on Chronic [] Acute Respiratory Distress [] Acute Respiratory Insufficiency [] Respiratory failure due to trauma [] Respiratory insufficiency due to trauma [] Unable to determine [] Other: Condition Present on Admission: [x] Yes [] No []Clinically Undeterminable Please also document in your Progress Notes and/or Discharge Summary and indicate if the condition was present on admission. Reuben Landaverde MD Date/Time [facility]
[2017-08-07 20:00] VITALS: BP 153/80
[2017-08-08] VITALS: BP 150/80
--- NOTE | 2017-08-08 03:30 | Progress Note ---
DATE: 08/07/2017 CARDIOLOGY PROGRESS NOTE Subjective: The patient has a headache, less congestion, but still short of breath. OBJECTIVE: Vital Signs: Blood pressure 155/89, pulse 72, respiratory rate 22, and afebrile. NECK: Supple. LUNGS: Clear. Cardiac: Regular rhythm and rate. Normal S1 and S2 with a fourth heart sound. ABDOMEN: Soft and nontender. EXTREMITIES: Trace dependent edema. Laboratory And Diagnostic Data: Digoxin level is 0.3. Chest x-ray with no acute process. Venous duplex negative for DVT. IMPRESSION: 1. Nitrate headache. 2. Hypertensive heart disease with elevated blood pressure. 3. Paroxysmal atrial fibrillation. 4. Hypothyroidism on replacement therapy. 5. Acute on chronic diastolic congestive heart failure. PLAN: 1. Repeat EKG. 2. Consider decreasing dose of amiodarone to maintenance dosing. 3. Reassess continued use of digitalis in this setting. 4. Up-titrate antihypertensives. Jose Elias Terrazas M.D. DR: RAEGAN JOB#: [id number] CC:
[2017-08-08 04:00] VITALS: BP 155/74
[2017-08-08] MEDS: clonazePAM 0.5mg tab ORAL SCH (06:14)
[2017-08-08] MEDS: Spironolactone 25mg tab ORAL SCH (08:11)
[2017-08-08] MEDS: Amiodarone 200mg tab ORAL SCH (08:11)
[2017-08-08] MEDS: Losartan 50mg tab ORAL SCH (08:11)
[2017-08-08 08:15] VITALS: BP 153/60
[2017-08-08] MEDS: Sertraline 50mg tab ORAL SCH (08:22)
[2017-08-08 09:00] VITALS: BP 153/60
--- NOTE | 2017-08-08 09:11 | Pulmonology Progress Note ---
Assessment/Plan Assessment/Plan respiratory insufficiency CHF possible fluid overload advanced age possible hypoventilation hypoxemia pulmonary hypertension by echo PLAN care noted and reviewed therapy reviewed respiratory care supportive care await venous US stablilize and dc when improved oxygen therapy prognosis guarded conservative management recommended at present; would benefit from right heart cath impression, plan, and exam edited and reviewed in detail care discussed with RN Subjective Allergies: Coded Allergies: No Known Allergies (Unverified , 01/13/15) Subjective less congestion noted headache minimal on oxygen Objective Last 24 Hour Vital Signs Date Time Temp Pulse Resp B/P (MAP) Pulse Ox O2 Delivery O2 Flow Rate FiO2 08/08/17 08:23 57 153/60 08/08/17 08:15 98.1 60 18 153/60 95 Room Air 08/08/17 08:11 155/74 08/08/17 04:00 55 08/08/17 04:00 97.5 52 18 155/74 96 Nasal Cannula 2.0 28 08/08/17 00:00 59 08/08/17 00:00 97.5 20 150/80 96 Nasal Cannula 2.0 28 08/07/17 20:49 75 153/80 08/07/17 20:25 Nasal Cannula 2.0 28 08/07/17 20:25 97 Nasal Cannula 2.0 28 08/07/17 20:00 73 08/07/17 20:00 97.9 75 20 153/80 98 Nasal Cannula 2.0 28 08/07/17 16:00 57 08/07/17 15:55 97.9 62 20 134/63 98 Nasal Cannula 2.0 08/07/17 12:00 97.0 57 20 152/96 100 Nasal Cannula 2.0 08/07/17 12:00 58 Intake and Output 08/08/17 08/09/17 19:00 07:00 Intake Total 240 ml Balance 240 ml Intake Oral 240 ml # Voids 1 Objective WDWN NAD reduced breath sounds bilaterally with resolved rhonchi but no wheeze [id number] without MRG NABS nontender no HSM no CC minimal edema nonfocal Current Medications Medications (Trade) Dose Ordered Sig/Tamia Route PRN Reason Start Time Stop Time Status Last Admin Dose Admin Acetaminophen (Tylenol) 650 mg Q4H PRN ORAL Mild Pain/Temp > 100.5 08/05/17 16:00 09/04/17 15:59 08/07/17 02:47 Amiodarone HCl (Cordarone) 200 mg EVERY 12 HOURS ORAL 08/04/17 21:00 09/03/17 20:59 08/08/17 08:11 Amlodipine Besylate (Norvasc) 10 mg DAILY ORAL 08/07/17 09:00 09/06/17 08:59 08/08/17 08:23 Clonazepam (KlonoPIN) 0.5 mg Q6HR ORAL 08/05/17 00:00 08/12/17 00:00 08/08/17 06:14 Furosemide (Lasix) 40 mg DAILY IV 08/05/17 09:00 09/04/17 08:59 08/08/17 08:11 Hydralazine HCl (Apresoline) 10 mg Q4H PRN IV For High Blood Pressure 08/06/17 08:00 09/05/17 07:59 Levofloxacin (Levaquin) 250 mg DAILY ORAL 08/07/17 09:00 08/14/17 08:59 08/08/17 08:11 Levothyroxine Sodium (Synthroid) 50 mcg ACBREAKFAST ORAL 08/05/17 06:30 09/04/17 06:29 08/08/17 06:14 Losartan Potassium (Cozaar) 100 mg DAILY ORAL 08/06/17 09:00 09/05/17 08:59 08/08/17 08:11 Metoprolol Tartrate (Lopressor) 100 mg EVERY 12 HOURS ORAL 08/04/17 21:00 09/03/17 20:59 08/07/17 20:49 Pantoprazole (Protonix) 40 mg ACBREAKFAST ORAL 08/05/17 06:30 09/04/17 06:29 08/08/17 06:14 Rivaroxaban (Xarelto) 15 mg QPM ORAL 08/05/17 16:30 09/04/17 16:29 08/07/17 16:18 Sennosides (Senokot) 17.2 mg DAILYPRN PRN ORAL Constipation 08/05/17 17:00 09/04/17 16:59 08/06/17 06:27 Sertraline HCl (Zoloft) 50 mg DAILY ORAL 08/05/17 09:00 09/04/17 08:59 08/08/17 08:22 Spironolactone (Aldactone) 25 mg DAILY ORAL 08/05/17 09:00 09/04/17 08:59 08/08/17 08:11 Temazepam (Restoril) 15 mg QHS ONCE ORAL 08/08/17 21:00 08/08/17 21:01 KARINE MARKS Aug 08, 2017 09:11
[2017-08-08 09:40] LABS: BASOPHILS % (AUTO) 0.9 % (0.0-2.0); EOSINOPHILS % (AUTO) 0.8 % (0.0-3.0); LYMPHOCYTES % (AUTO) 34.2 % (20.0-45.0); MEAN CORPUSCULAR HEMOGLOBIN 30.5 PG (27.0-31.0); MEAN CORPUSCULAR HGB CONC 32.4 G/DL (32.0-36.0); MEAN CORPUSCULAR VOLUME 94 FL (80-99); MEAN PLATELET VOLUME 6.5 FL (6.5-10.1); MONOCYTES % (AUTO) 9.1 % (1.0-10.0); NEUTROPHILS % (AUTO) 54.9 % (45.0-75.0); PLATELET COUNT 233 K/UL (150-450); RED BLOOD COUNT 4.55 M/UL (4.20-5.40); RED CELL DISTRIBUTION WIDTH 13.5 % (11.6-14.8); WHITE BLOOD COUNT 5.4 K/UL (4.8-10.8)
[2017-08-08 09:58] LABS: ALANINE AMINOTRANSFERASE 18 U/L (3-33); ALBUMIN/GLOBULIN RATIO 1.1 (1.0-2.7); ANION GAP 14 (5-15); ASPARTATE AMINO TRANSFERASE 26 U/L (5-40); CALCIUM 9.6 mg/dL (8.6-10.2); CARBON DIOXIDE 27 mEQ/L (20-30); CHLORIDE 100 mEQ/L (98-107); CREATININE 1.4 mg/dL (0.5-0.9); HEMOLYSIS 6; POTASSIUM 3.9 mEQ/L (3.4-4.9); SODIUM 141 mEQ/L (135-145); TOTAL PROTEIN 7.2 g/dL (6.6-8.7)
--- NOTE | 2017-08-09 09:45 | Discharge Summary ---
DATE OF ADMISSION: 08/04/2017 DATE OF DISCHARGE: 08/08/2017 ADMISSION DIAGNOSES: 1. Shortness of breath. 2. Congestive heart failure exacerbation. 3. Paroxysmal atrial fibrillation. 4. Hypertension. DISCHARGE DIAGNOSES: 1. Shortness of breath. 2. Congestive heart failure exacerbation. 3. Paroxysmal atrial fibrillation. 4. Hypertension. Hospital Course: The patient is a pleasant female, who was admitted with complaints of shortness of breath. She was diagnosed with a congestive heart failure exacerbation. She was admitted and she received intravenous Lasix. Her cardiac regimen was adjusted. She was continued on Xarelto for prophylaxis for atrial fibrillation and atrial flutter. On discharge, she was doing well. Her shortness of breath had resolved. Discharge Medications: Please see discharge medication list for discharge medications. DIET: Cardiac diet. ACTIVITY: Ad-luis m. Followup: It was recommended to the patient that she follow up with her ripshear operator in one week and to return for any chest pain or shortness of breath or bleeding. Reuben Landaverde M.D. DR: Adam JOB#: [id number] CC:
--- NOTE | 2017-08-09 16:45 | Progress Note ---
DATE: 08/08/2017 CARDIOLOGY PROGRESS NOTE Subjective: The patient is much improved. Less short of breath. No chest pain. OBJECTIVE: Vital Signs: Blood pressure 153/60, pulse 57, respirations 18, and afebrile. NECK: Supple. LUNGS: With clear breath sounds. Cardiac: Regular rhythm and rate. Normal S1 and S2 with a 1/6 apical murmur. ABDOMEN: Soft. EXTREMITIES: With no edema. Laboratory Data: White count 5.4 and hemoglobin 13.9. Potassium 2.9, BUN 25, and creatinine 1.4. Pro-natriuretic peptide decreased to 1300. IMPRESSION: 1. Paroxysmal atrial fibrillation. 2. Hypothyroidism. 3. Acute on chronic diastolic congestive heart failure, clinically compensated. 4. Hypertensive heart disease with stabilizing blood pressure control. 5. Dyspnea due to above and likely component of pulmonary hypertension. PLAN: 1. Maintenance dose amiodarone. 2. No need for continued digoxin therapy. 3. Continue current antihypertensive regimen. 4. Titrate further as outpatient based on clinical parameters. 5. Maintenance dose diuretic. 6. Continue antianginal regimen. 7. Maintain rivaroxaban for cardioembolic prophylaxis. Jose Elias Terrazas M.D. DR: RAEGAN JOB#: [id number] CC:
--- NOTE | 2017-08-27 17:50 | Cardiology Report ---
APPROVED REPORT EKG Measurement Heart [id number] Atrial flutter with variable AV block Minimal voltage criteria for LVH, may be normal variant Nonspecific ST abnormality Abnormal ECG
== END 2017-08-08 11:40 | disposition home or self-care (01) | DRG 291 ==
LOC: EDBD 15:10 → EMR 15:31 → 2E 17:30 → EDBEDREQ 18:09
DX: I11.0 Hypertensive heart disease with heart failure (principal); J96.01 Acute respiratory failure with hypoxia; I48.92 Unspecified atrial flutter; I50.33 Acute on chronic diastolic (congestive) heart failure; I48.0 Paroxysmal atrial fibrillation; Z79.01 Long term (current) use of anticoagulants; E03.9 Hypothyroidism, unspecified; J40 Bronchitis, not specified as acute or chronic; I25.5 Ischemic cardiomyopathy; I34.0 Nonrheumatic mitral (valve) insufficiency; I36.1 Nonrheumatic tricuspid (valve) insufficiency; G44.40 Drug-induced headache, not elsewhere classified, not intractable; T46.3X5A Adverse effect of coronary vasodilators, initial encounter
CPT/HCPCS: 36415; 71010; 80053; 80061; 80162; 82962; 83735; 83880; 84484; 85025; 85379; 93005; 93306; 93970; 94760; 99285; J8499